=== PATIENT | female | born 1970 | race Caucasian/White ===

== ENCOUNTER → 2016-12-23 | Outpatient (CLI) | payer BC ==
[2016-12-23 13:15] LABS: Appearance,Urine Clear (Clear); Bilirubin,Urine Negative (Negative); Glucose,Urine (UA) Negative (Negative); Ketones,Urine Negative (Negative); Leukocyte Esterase,Urine Negative (Negative); Mucus,Urine Rare /hpf; Nitrite,Urine Negative (Negative); PH, Urine 5.5 (5.0-8.0); Particle Count 2368; Protein,Urine Negative (Negative); RBC,Urine 1 /hpf (0-5); Squamous Epithelial Cell,Urine 1 /hpf (0-4); UA Billing (MACRO vs. MICRO) MICRO; Urobilinogen,Urine <2.0 mg/dL (<2.0)
--- NOTE | 2016-12-27 06:57 | MM ---
Reason for exam: screening (asymptomatic). Last mammogram was performed 2 years and 9 months ago. History: Took hormonal contraceptives for 10 years. Physical Findings: A clinical breast exam by your physician is recommended on an annual basis and results should be correlated with mammographic findings. MG Screening Mammo w CAD Bilateral CC and MLO view(s) were taken. Prior study comparison: March 14, 2014, bilateral MG screening mammo w CAD. The breast tissue is heterogeneously dense. This may lower the sensitivity of mammography. Stable regional calcifications in the left breast. No significant changes when compared with prior studies. ASSESSMENT: Negative, BI-RAD 1 RECOMMENDATION: Routine screening mammogram of both breasts in 1 year.
== END | disposition home or self-care (01) ==
LOC: RADMAMWWP 11:53
PROVIDERS: ATTEND Internal Medicine
DX: Z12.31 Encounter for screening mammogram for malignant neoplasm of breast (principal); R31.29 Other microscopic hematuria
CPT/HCPCS: 84443; 81001; 36415; G0202

== ENCOUNTER → 2017-01-20 | Outpatient (CLI) | payer BC ==
--- NOTE | 2017-01-20 09:43 | US ---
EXAMINATION TYPE: US kidneys/renal and bladder DATE OF EXAM: 01/20/2017 COMPARISON: NONE CLINICAL HISTORY: R31.29 Microscopic Hematuria; paternal history of renal CA. EXAM MEASUREMENTS: Right Kidney: 11.6 x 5.9 x 4.2 cm Left Kidney: 11.9 x 6.3 x 4.7 cm Post Void Residual Volume: 10.3 mL Right Kidney: No hydronephrosis or masses seen Left Kidney: No hydronephrosis or masses seen Bladder: wnl although it is not fully distended Bilateral Jets seen: Yes Normal Post Void Residual: Yes There is no evidence for hydronephrosis at this point in time. No nephrolithiasis is seen. No gerry s are identified. The urinary bladder is anechoic. Bilateral ureteral jets are seen. IMPRESSION: NORMAL RENAL ULTRASOUND.
== END | disposition home or self-care (01) ==
LOC: RADUSWWP 08:57
PROVIDERS: ATTEND Internal Medicine
DX: R31.29 Other microscopic hematuria (principal)
CPT/HCPCS: 76770

== ENCOUNTER 2017-08-11 19:03 | Emergency (ER) | payer BC ==
--- NOTE | 2017-08-11 20:05 | ED ---
General Adult HPI - General Source: patient, RN notes reviewed Mode of arrival: ambulatory Limitations: no limitations <Robbie Dixon - Last Filed: 08/11/17 20:55> <Crispin Swartz - Last Filed: 08/11/17 22:12> - General Chief complaint: Chest Pain Stated complaint: Chest pressure Time Seen by Provider: 08/11/17 19:10 - History of Present Illness Initial comments: This is a 46-year-old female presents emergency department after having had 2 sharp pains in her chest while driving home. Patient states that lasted about 1 second each time. Patient states then she started to get worried about having chest pain and then she had some tingling sensation in her arm though she had normal strength and normal sensation. Patient states after that she became very nervous and had a warm sensation over her whole body. Patient states she had that same warm sensation 2 more times. Patient states she had no more chest pain and no more arm tingling since then. But because she was so nervous and worked up about it she wanted to come in the emergency department to get checked out. Patient currently is asymptomatic. Patient has no diabetes no high blood pressure high cholesterol. Patient denies being any control pills. Patient denies any calf pain. Patient denies any pedal edema. Patient denies headache patient denies numbness weakness. Patient denies any lightheadedness dizziness or near syncopal episode. (Robbie Dixon) - Related Data Home Medications Medication Instructions Recorded Confirmed Adalimumab [Humira Pen] 40 mg SQ [id number] 08/11/17 08/11/17 Fluticasone Nasal [place] [Flonase 1 spray EA NOSTRIL DAILY PRN 08/11/17 08/11/17 Nasal [place]] Levothyroxine Sodium [Synthroid] 100 mcg PO DAILY 08/11/17 08/11/17 Oxymetazoline 0.05% Nasl [place] 2 spray EA NOSTRIL BID PRN 08/11/17 08/11/17 [Afrin 0.05% Nasal [place]] Phenylephrine/Dm/Acetaminop/GG 1 each PO Q6H PRN 08/11/17 08/11/17 [Tylenol Cold-Flu Severe Caplet] Allergies Allergy/AdvReac Type Severity Reaction Status Date / Time No Known Allergies Allergy Verified 08/11/17 19:47 Review of Systems ROS Other: All systems not noted in ROS Statement are negative. <Robbie Dixon - Last Filed: 08/11/17 20:55> ROS Other: All systems not noted in ROS Statement are negative. <Crispin Swartz - Last Filed: 08/11/17 22:12> ROS Statement: Those systems with pertinent positive or pertinent negative responses have been documented in the HPI. Past Medical History Past Medical History: Thyroid Disorder History of Any Multi-Drug Resistant Organisms: None Reported Additional Past Surgical History / Comment(s): uterine ablation 2012 Past Psychological History: No Psychological Hx Reported Smoking Status: Never smoker Past Alcohol Use History: Occasional Past Drug Use History: None Reported <Robbie Dixon - Last Filed: 08/11/17 20:55> General Exam Limitations: no limitations <Robbie Dixon - Last Filed: 08/11/17 20:55> <Cirspin Swartz - Last Filed: 08/11/17 22:12> - General Exam Comments Initial Comments: GENERAL: Patient is well-developed and well-nourished. Patient is nontoxic and well- hydrated and is in no acute distress. ENT: Neck is soft and supple. No significant lymphadenopathy is noted. Oropharynx is clear. Moist mucous membranes. EYES: The sclera were anicteric and conjunctiva were pink and moist. Extraocular movements were intact and pupils were equal round and reactive to light. Eyelids were unremarkable. PULMONARY: Unlabored respirations. Good breath sounds bilaterally. No audible rales rhonchi or wheezing was noted. CARDIOVASCULAR: There is a regular rate and rhythm without any murmurs gallops or rubs. ABDOMEN: Soft and nontender with normal bowel sounds. SKIN: Skin is clear with no lesions or rashes and otherwise unremarkable. NEUROLOGIC: Patient is alert and oriented x3. Cranial nerves II through XII are grossly intact. Motor and sensory are also intact. Normal speech, volume and content. Symmetrical smile. MUSCULOSKELETAL: Normal extremities with adequate strength and full range of motion. No lower extremity swelling or edema. No calf tenderness. LYMPHATICS: No significant lymphadenopathy is noted PSYCHIATRIC: Normal psychiatric evaluation. Normal interpersonal interactions appears functionally intact in deals appropriately with others. No signs of depression. Mildly anxious (Robbie Dixon) Vital Signs 08/11/17 19:12 Temperature 98.4 F Pulse Rate 80 Respiratory 20 Rate Blood Pressure 135/74 O2 Sat by Pulse 98 Oximetry Medical Decision Making <Robbie Dixon - Last Filed: 08/11/17 20:55> - Lab Data Result diagrams: 08/11/17 20:43 08/11/17 20:43 <Crispin Swartz - Last Filed: 08/11/17 22:12> - Medical Decision Making EKG shows a normal sinus rhythm at 81 bpm WA interval is 152 QRS is 92 QT interval 370 QTC is 439. Patient's EKG shows no ST segment elevation or depression or T wave abnormalities are noted. Dr. Swartz will take over the care of this patient at 9:00 (Robbie Dixon) Patient's care is signed out at shift change awaiting laboratory studies. These were reviewed, normal blood cell count, stable hemoglobin, normal S, troponin is negative. Chest x-ray shows no acute findings. She was reevaluated , she's comfortable, no further pain. She will follow-up with the primary care physician. (Crispin Swartz) - Lab Data Lab Results 08/11/17 08/11/17 08/11/17 Range/Units 20:43 20:43 20:43 WBC 6.9 (3.8-10.6) k/uL RBC 4.31 (3.80-5.40) m/uL Hgb 13.8 (11.4-16.0) gm/dL Hct 41.6 (34.0-46.0) % MCV 96.5 (80.0-100.0) fL MCH 32.0 (25.0-35.0) pg MCHC 33.1 (31.0-37.0) g/dL RDW 14.3 (11.5-15.5) % Plt Count 221 (150-450) k/uL Neutrophils % 71 % Lymphocytes % 19 % Monocytes % 6 % Eosinophils % 2 % Basophils % 0 % Neutrophils # 4.9 (1.3-7.7) k/uL Lymphocytes # 1.3 (1.0-4.8) k/uL Monocytes # 0.4 (0-1.0) k/uL Eosinophils # 0.1 (0-0.7) k/uL Basophils # 0.0 (0-0.2) k/uL Sodium 135 L (137-145) mmol/L Potassium 4.3 (3.5-5.1) mmol/L Chloride 100 (98-107) mmol/L Carbon Dioxide 27 (22-30) mmol/L Anion Gap 8 mmol/L BUN 18 H (7-17) mg/dL Creatinine 0.73 (0.52-1.04) mg/dL Est GFR (MDRD) Af Amer >60 (>60 ml/min/1.73 sqM) Est GFR (MDRD) Non-Af >60 (>60 ml/min/1.73 sqM) Glucose 104 H (74-99) mg/dL Calcium 9.2 (8.4-10.2) mg/dL Total Bilirubin 0.8 (0.2-1.3) mg/dL AST 24 (14-36) U/L ALT 35 (9-52) U/L Alkaline Phosphatase 73 (38-126) U/L Troponin I <0.012 (0.000-0.034) ng/mL Total Protein 8.2 (6.3-8.2) g/dL Albumin 4.5 (3.5-5.0) g/dL Disposition <Robbie Dixon - Last Filed: 08/11/17 20:55> Time of Disposition: 22:12 <Crispin Swartz - Last Filed: 08/11/17 22:12> Clinical Impression: Chest pain Disposition: HOME SELF-CARE Condition: Good Instructions: Chest Pain (ED) Referrals: None,Stated [Primary Care Provider] - 1-2 days
--- NOTE | 2017-08-11 20:27 | XR ---
EXAMINATION TYPE: XR chest 2V DATE OF EXAM: 08/11/2017 COMPARISON: NONE HISTORY: Chest pain and pressure TECHNIQUE: Frontal and lateral views of the chest are obtained. FINDINGS: There is no focal air space opacity, pleural effusion, or pneumothorax seen. The cardiac silhouette size is within normal limits. The osseous structures are intact. IMPRESSION: No acute cardiopulmonary process.
[2017-08-11 21:01] LABS: Basophils % (A) 0 %; Eosinophils # (A) 0.1 k/uL (0-0.7); Eosinophils % (A) 2 %; HCT 41.6 % (34.0-46.0); HGB 13.8 gm/dL (11.4-16.0); Lymphocytes # (A) 1.3 k/uL (1.0-4.8); Lymphocytes % (A) 19 %; MCHC 33.1 g/dL (31.0-37.0); MCV 96.5 fL (80.0-100.0); Mean Platelet Volume 8.8; Monocytes # (A) 0.4 k/uL (0-1.0); Monocytes % (A) 6 %; Neutrophils # (A) 4.9 k/uL (1.3-7.7); Neutrophils % (A) 71 %; Platelet Count 221 k/uL (150-450); RBC 4.31 m/uL (3.80-5.40); RDW 14.3 % (11.5-15.5); WBC 6.9 k/uL (3.8-10.6)
[2017-08-11 21:10] LABS: ALT 35 U/L (9-52); AST 24 U/L (14-36); Albumin 4.5 g/dL (3.5-5.0); Alkaline Phosphatase 73 U/L (38-126); Anion Gap 8 mmol/L; Blood Urea Nitrogen 18 mg/dL (7-17); Calcium 9.2 mg/dL (8.4-10.2); Carbon Dioxide 27 mmol/L (22-30); Chloride 100 mmol/L (98-107); Glucose 104 mg/dL (74-99); Potassium 4.3 mmol/L (3.5-5.1); Sodium 135 mmol/L (137-145); Total Bilirubin 0.8 mg/dL (0.2-1.3); Total Protein 8.2 g/dL (6.3-8.2)
[2017-08-11 22:50] VITALS: BP 139/83; PULSE 82; RESP 18; TEMP 97.9
== END 2017-08-11 22:50 | disposition home or self-care (01) ==
LOC: EC 19:03
DX: R07.9 Chest pain, unspecified (principal); R20.2 Paresthesia of skin; R45.0 Nervousness; E07.9 Disorder of thyroid, unspecified; Z79.899 Other long term (current) drug therapy
CPT/HCPCS: 36415; 71020; 80053; 84484; 85025; 93005; 99285